=== PATIENT | male | born 2000 | race Caucasian/White ===

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

== ENCOUNTER 2020-07-07 11:58 | Emergency (ER) | payer OTHER ==
[~2020-07-07 11:58] MED LIST: BUSPAR5 MG PO; MEDROL 4MG DOSEP4 MG PO; MOBIC15 MG PO; TRILEPTAL150 MG PO; VENTOLIN HFA IN18 GM INH; ZOFRAN4 MG PO
[2020-07-07] MEDS ORDERED: ILOTYCIN1 GM OS (14:23)
== END 2020-07-07 15:08 | disposition home or self-care (01) ==
LOC: FER 11:58
DX: H10.9 Unspecified conjunctivitis (principal); H93.11 Tinnitus, right ear
CPT/HCPCS: 99283

== ENCOUNTER 2021-03-15 16:25 | Emergency (ER) | payer SELFPAY ==
[~2021-03-15 16:25] MED LIST changes: +ILOTYCIN1 GM OS; +ZOFRAN4 M1 PO
[2021-03-15 21:45] LABS: BILIRUBIN NEGATIVE (NEGATIVE); BLOOD NEGATIVE Ery/uL (NEGATIVE); CLARITY CLEAR (CLEAR); COLOR YELLOW (YELLOW); GLUCOSE (U) NORMAL (NORMAL); LEUKOCYTES NEGATIVE Leu/uL (NEGATIVE); NITRITE NEGATIVE (NEGATIVE); PROTEIN NEGATIVE (NEGATIVE)
[2021-03-17 22:09] LABS: CHLAMYDIA TRACHOMATIS, NAA Negative (Negative); NEISSERIA GONORRHOEAE, NAA Negative (Negative)
== END 2021-03-15 21:30 | disposition home or self-care (01) ==
LOC: FER 16:25
PROVIDERS: Emergency Medicine
DX: N50.89 Other specified disorders of the male genital organs (principal)
CPT/HCPCS: 76870; 81003; 87491; 87591

== ENCOUNTER 2021-09-14 18:00 | Emergency (ER) | payer MEDICAID ==
[2021-09-14] MEDS ORDERED: ILOTYCIN1 GM OS (21:15)
== END 2021-09-14 21:30 | disposition home or self-care (01) ==
LOC: FER 18:00
DX: S05.02XA Injury of conjunctiva and corneal abrasion without foreign body, left eye, initial encounter (principal); Z28.310 Unvaccinated for COVID-19; X58.XXXA Exposure to other specified factors, initial encounter; Y92.89 Other specified places as the place of occurrence of the external cause; Y93.89 Activity, other specified; Y99.0 Civilian activity done for income or pay
CPT/HCPCS: 99283

== ENCOUNTER 2021-10-19 10:21 | Emergency (ER) | payer OTHER ==
[2021-10-19 11:19] LABS: INFLUENZA A NAA NEGATIVE (NEGATIVE)
[2021-10-19 11:21] LABS: CORONAVIRUS 2019 SARS-COV-2 POSITIVE (NEGATIVE)
[2021-10-19] MEDS ORDERED: PAXLOVID CO-PA1 EAC1 PO (11:26)
== END 2021-10-19 12:14 | disposition home or self-care (01) ==
LOC: FER 10:21
PROVIDERS: Emergency Medicine
DX: U07.1 COVID-19 (principal)
CPT/HCPCS: 99283; U0002